=== PATIENT | male | born 1980 | race Caucasian/White ===

== ENCOUNTER 2018-03-06 00:54 | Day surgery (SDC) | payer OTHER ==
[~2018-03-06] VITALS: Ht 177.8 cm; Wt 106.6 kg
[~2018-03-06 00:54] MED LIST: LISI5TAB25 PO
[2018-03-06 07:55] VITALS: BP 124/74
[2018-03-06] MEDS ORDERED: MIDAZOLAM 2 MG/2 ML VIAL IVP PRN (08:00)
[2018-03-06] MEDS ORDERED: CELECOXIB 200 MG CAP PO ONE (08:00)
[2018-03-06] MEDS ORDERED: LIDOCAINE/SOD BICARB 8.4% SYR ID ONE (08:00)
[2018-03-06] MEDS ORDERED: FAMOTIDINE 20 MG TAB PO ONE (08:00)
[2018-03-06] MEDS ORDERED: ceFAZolin(*) 2GM/D5W 50ML 50 ML IVPB ONE (08:00)
[2018-03-06] MEDS ORDERED: NORMOSOL R SOLN(*) 1000 ML BAG 1,000 ML IV PRN (08:00)
[2018-03-06] MEDS ORDERED: LIDOCAINE MPF 1% 5 ML VIAL ONE (08:22)
[2018-03-06] MEDS ORDERED: DEXAMETHASONE SOD 4 MG/ML VIAL ONE (08:22)
[2018-03-06] MEDS ORDERED: PROPOFOL EMUL(*) 10MG/ML 20 ML 40 ML ONE (08:22)
[2018-03-06] MEDS ORDERED: ONDANSETRON 4 MG/2 ML VIAL ONE (08:22)
[2018-03-06] MEDS ORDERED: fentaNYL CITR 100 MCG/2 ML AMP ONE (08:23)
[2018-03-06] MEDS ORDERED: KETAMINE HCL 200 MG/20 ML MDV ONE (08:26)
[2018-03-06] MEDS ORDERED: ROPIVACAINE 0.2% 20 ML VIAL ONE (11:03)
[2018-03-06] MEDS ORDERED: KET10 PO (14:00)
[2018-03-06] MEDS ORDERED: OXYC5TAB38 PO (14:02)
[2018-03-06 14:29] VITALS: BP 129/74
[2018-03-06 15:00] VITALS: BP 117/72
[2018-03-06 15:30] VITALS: BP 114/70
[2018-03-06 15:42] VITALS: BP 114/76
[2018-03-06] MEDS ORDERED: KETOROLAC TROM 10MG TAB PO ONE (16:05)
--- NOTE | 2018-03-07 11:28 | OPERATIVE REPORT 1 ---
EVENT DATE: March 06, 2018 SURGEON: Kojo Brooks MD ANESTHESIOLOGIST: Jonas Doshi MD ANESTHESIA: Right interscalene block followed by general. PULL OUT OPERATOR: ATA Garza PREOPERATIVE DIAGNOSIS Right shoulder superior labral tear from anterior to posterior (SLAP) lesion with possible cuff tear. POSTOPERATIVE DIAGNOSIS Right shoulder grade 2 superior labral tear from anterior to posterior (SLAP) tear with posterior extension at 10 o'clock, partial thickness tear of the anterior two-thirds of the supraspinatus tendon involving less than 20% of the tendon. PROCEDURE PERFORMED Left shoulder arthroscopy with debridement of supraspinatus tendon tear followed by repair of SLAP tear and repair of posterior superior labral tear. IMPLANTS Two Biomet 1.5 mm JuggerKnot suture anchors. SPECIMENS None. COMPLICATIONS None. BLOOD LOSS Less than 5 mL. DESCRIPTION OF PROCEDURE Patient received appropriate preoperative antibiotic, was brought to the OR, where Dr. Doshi performed right interscalene block followed by general anesthesia. Patient was placed in the left lateral decubitus position, right shoulder up, with appropriate padding and positioners. Right shoulder was then prepped and draped in usual sterile fashion. Through a posterior approach, we injected the glenohumeral joint with arthroscopic fluid. We then established a posterior portal and through an outside-in technique, we established our anterior portal. Subscap was intact. It took probing and stressing. Biceps tendon was intact, but as we came into the insertion on the anchor, we noted grade 2 SLAP tear, but this extended posterior to approximately 10 o'clock. Remaining labrum was intact, as well as glenoid and humeral articular cartilage. There were no loose bodies in the axillary pouch. Teres minor and infraspinatus were grossly intact, but the supraspinatus tendon showed a partial thickness tear. This was then debrided with a shaver and was noted to involve less than 20% of the insertion. I then established an 8.5 mm cannula anteriorly and an anterolateral portal with a 5.5 mm cannula. We utilized the labral elevator to elevate the labrum from the biceps anchor for the SLAP lesion , and posteriorly in the posterior superior labrum. The landing area was then debrided with the shaver, then the nancy mode of the shaver to get to bleeding bone for the labral insertion. Starting posteriorly, we inserted our first anchor at approximately 10:30. This was at the glenoid-labral interface. A Sticky curved suture passer was then utilized to pass these two sutures utilizing a shuttle, the first one at 10 o'clock and the second one at 11 o' clock. These sutures were then brought out through the anterolateral portal and tied arthroscopically to fix the posterior superior labral tear. The second anchor was then placed between 11:30 and 12 o'clock, again at the glenoid labral interval. We then passed these sutures utilizing the Spectrum curved suture passer in a similar fashion, which was horizontal, first at about 11:30, and then 12 o'clock to 12:30. These sutures were then passed through the anterolateral portal, tied arthroscopically. Both these sutures were away from the articular surfaces. We stabilized our SLAP and posterior superior labral tear, stable to probing. We then marked with PDS the anterior portion of the supraspinatus tendon tear and placed the scope from the posterior aspect into the subacromial space. Through the anterolateral portal, we placed a shaver, debrided the fairly significant bursal reaction for visualization, noted the CA ligament was intact without abrasion. We probed the area of interest and the supraspinatus tendon did not show any significant thinning. Instrumentation was removed, portals closed subcutaneously with 4-0 Monocryl followed by Steri-Strips. Injection of the portals with ropivacaine as well as the subacromial space. We applied dressing, UltraSling. Patient was extubated and taken to recovery in stable condition. Tylenol, Toradol and OxyIR were prescribed. Will follow him up next week in our [facility]. Dressings can be changed in two days. PERICO
== END 2018-03-06 14:22 | disposition home or self-care (01) ==
LOC: OR 00:54
PROVIDERS: ATTEND Orthopaedic Surgery
DX: S43.431A Superior glenoid labrum lesion of right shoulder, initial encounter (principal)
CPT/HCPCS: 29807; J1100; J2001; J2250; J2405; J2704; J2795; J3010; J3490; 76942; A4565; C1713; J0690